=== PATIENT | male | born 1965 | race Caucasian/White ===

== ENCOUNTER 2018-10-18 14:53 | Emergency (ER) | payer SELFPAY ==
[~2018-10-18] VITALS: Ht 170.2 cm; Wt 79.4 kg
[2018-10-18 14:53] VITALS: BP 144/83
[2018-10-18] MEDS ORDERED: IBUPROFEN 600 MG TABLET PO ONE (15:30)
[2018-10-18] MEDS: IBUPROFEN 600 MG TABLET PO ONE (15:34)
--- NOTE | 2018-10-18 16:41 | NUR ---
Patient discharged to home in stable condition. Written and verbal after care instructions given. Patient verbalizes understanding of instruction.
== END 2018-10-18 16:42 | disposition home or self-care (01) ==
LOC: ER 14:54
DX: S90.32XA Contusion of left foot, initial encounter (principal); F17.200 Nicotine dependence, unspecified, uncomplicated; V19.49XA Pedal cycle driver injured in collision with other motor vehicles in traffic accident, initial encounter; Y93.I9 Activity, other involving external motion; Y92.410 Unspecified street and highway as the place of occurrence of the external cause; Y99.8 Other external cause status
CPT/HCPCS: 73590-TC; 73630-TC